=== PATIENT | female | born 1990 | race Hispanic/Latino ===

== ENCOUNTER 2024-03-06 21:37 | Emergency (ER) | payer BC ==
[~2024-03-06] VITALS: Ht 165.1 cm; Wt 110.2 kg
[2024-03-06] MEDS ORDERED: TYLENOL325 MG PO (22:48)
[2024-03-06] MEDS ORDERED: CEFDINIR300 MG PO (22:48)
[2024-03-06] MEDS ORDERED: IBUPROFEN200 MG PO (22:48)
[2024-03-06] MEDS ORDERED: DIPHENHYDRAMINE25 M2 PO (22:48)
[2024-03-06 22:51] VITALS: PULSE 65; RESP 18; TEMP 98; O2SAT 98
== END 2024-03-06 22:53 | disposition home or self-care (01) ==
LOC: FSED 21:41
DX: R05.9 Cough, unspecified (principal); J02.9 Acute pharyngitis, unspecified; R53.81 Other malaise; Z11.52 Encounter for screening for COVID-19
CPT/HCPCS: 0223U; 83518 ×2; 87400; 99283